=== PATIENT | male | born 1950 | race Caucasian/White ===

== ENCOUNTER 2021-07-10 09:25 | Outpatient (CLI) | payer MEDICARE, OTHER ==
[2021-07-10 18:46] LABS: SARS-CoV-2 PCR by NAA Not Detected (NotDetected)
== END 2021-07-10 09:26 | disposition home or self-care (01) ==
LOC: CSHLAB 09:25
PROVIDERS: ATTEND Internal Medicine Pulmonary Disease
DX: Z20.822 Contact with and (suspected) exposure to COVID-19 (principal)
CPT/HCPCS: U0003; U0005

== ENCOUNTER 2021-07-13 08:56 | Outpatient (CLI) | payer MEDICARE, OTHER | END 2021-07-13 08:57 | disposition home or self-care (01) | LOC: CSHCP 08:56 | PROVIDERS: ATTEND Internal Medicine Pulmonary Disease | DX: R06.89 Other abnormalities of breathing (principal); R94.2 Abnormal results of pulmonary function studies | CPT/HCPCS: 94060; 94729; 94760 ==